=== PATIENT | female | born 1950 | race Caucasian/White ===

== ENCOUNTER → 2020-11-06 | Outpatient (CLI) | payer MEDICARE, OTHER | LOC: HEART 5 11:26 | DX: J43.9 Emphysema, unspecified (principal); R91.1 Solitary pulmonary nodule; R94.2 Abnormal results of pulmonary function studies; F17.210 Nicotine dependence, cigarettes, uncomplicated | CPT/HCPCS: 94010; 94729 ==

== ENCOUNTER → 2020-11-06 | Outpatient (CLI) | payer MEDICARE, OTHER | LOC: RT 13:14 | DX: R09.02 Hypoxemia (principal) | CPT/HCPCS: 36600; 82803 ==